=== PATIENT | female | born 1980 | race Caucasian/White ===

== ENCOUNTER 2018-08-02 18:20 | Observation (INO) | payer OTHER ==
[2018-08-02 20:52] LABS: ADD MAN DIFF? NO
[2018-08-02 20:55] LABS: BASOPHIL # 0.1 10^3/ul (0.0-0.1); BASOPHILS % 0.4 % (0.0-2.0); EOSINOPHILS # 0.5 10^3/ul (0.0-0.5); EOSINOPHILS % 3.9 % (0.0-7.0); HEMATOCRIT 32.2 % (37.0-47.0); HEMOGLOBIN 10.9 g/dl (12.0-16.0); LYMPHOCYTES # 2.4 10^3/ul (0.8-2.9); LYMPHOCYTES % 20.2 % (15.0-51.0); MEAN CORPUSCULAR HEMOGLOBIN 29.9 pg (29.0-33.0); MEAN CORPUSCULAR HGB CONC 33.9 g/dl (32.0-37.0); MEAN CORPUSCULAR VOLUME 88.2 fl (82.0-101.0); MEAN PLATELET VOLUME 8.9 fl (7.4-10.4); MONOCYTE # 0.9 10^3/ul (0.3-0.9); MONOCYTES % 7.8 % (0.0-11.0); NEUTROPHIL # 8.1 10^3/ul (1.6-7.5); NEUTROPHILS % 67.4 % (39.0-77.0); PLATELET COUNT 241 10^3/UL (140-415); RED BLOOD COUNT 3.65 10^6/ul (4.20-5.40); RED CELL DISTRIBUTION WIDTH 12.3 % (11.5-14.5)
[2018-08-02 21:15] LABS: INR 0.98; PARTIAL THROMBOPLASTIN TIME 28.8 Sec (23.0-35.0); PROTIME 13.1 Sec (11.9-14.9)
[2018-08-02] MEDS: HYDROmorphONE 0.5 MG/0.5 ML SYG IV (21:24)
[2018-08-02] MEDS: ONDANSETRON 4 MG INJ IV (21:24)
[2018-08-02] MEDS: SOD CHLORIDE 0.9% 1,000 ML IV ×2 (21:24→22:41)
[2018-08-02 21:26] LABS: ANION GAP 8 (5-13); BLOOD UREA NITROGEN 10 mg/dl (7-20); CALCIUM 9.4 mg/dl (8.4-10.2); CARBON DIOXIDE 24 mmol/L (21-31); CHLORIDE 105 mmol/L (97-110); CREATININE 0.58 mg/dl (0.44-1.00); Estimated GFR > 60 mL/min (>60); GLUCOSE 102 mg/dl (70-220); POTASSIUM 4.2 mmol/L (3.5-5.1); SODIUM 137 mmol/L (135-144)
[2018-08-02] MEDS ORDERED: ONDANSETRON 4 MG INJ IV (23:00)
[2018-08-03] MEDS: DEXTROSE 5%-LR 1,000 ML IV (00:43)
[2018-08-03] MEDS: ACETAMINOPHEN 325 MG TAB PO (00:55)
[2018-08-03] MEDS ORDERED: ACETAMINOPHEN 325 MG TAB PO (01:00)
[2018-08-03] MEDS: LACTATED RINGER'S 1,000 ML IV ×2 (01:58→11:38)
[2018-08-03 02:07] LABS: HEMATOCRIT 30.3 % (37.0-47.0); HEMOGLOBIN 10.4 g/dl (12.0-16.0)
[2018-08-03 02:25] LABS: ANION GAP 8 (5-13); BLOOD UREA NITROGEN 8 mg/dl (7-20); CALCIUM 8.5 mg/dl (8.4-10.2); CARBON DIOXIDE 27 mmol/L (21-31); CHLORIDE 103 mmol/L (97-110); CREATININE 0.56 mg/dl (0.44-1.00); Estimated GFR > 60 mL/min (>60); GLUCOSE 105 mg/dl (70-220); POTASSIUM 3.6 mmol/L (3.5-5.1); SODIUM 138 mmol/L (135-144)
[2018-08-03 05:15] LABS: ADD MAN DIFF? NO
[2018-08-03 05:16] LABS: WHITE BLOOD COUNT 10.4 10^3/ul (4.8-10.8)
[2018-08-03 05:16] LABS: BASOPHILS % 0.4 % (0.0-2.0); EOSINOPHILS # 0.5 10^3/ul (0.0-0.5); EOSINOPHILS % 4.4 % (0.0-7.0); HEMATOCRIT 27.5 % (37.0-47.0); HEMOGLOBIN 9.3 g/dl (12.0-16.0); LYMPHOCYTES # 2.4 10^3/ul (0.8-2.9); LYMPHOCYTES % 22.9 % (15.0-51.0); MEAN CORPUSCULAR HEMOGLOBIN 29.7 pg (29.0-33.0); MEAN CORPUSCULAR HGB CONC 33.8 g/dl (32.0-37.0); MEAN CORPUSCULAR VOLUME 87.9 fl (82.0-101.0); MEAN PLATELET VOLUME 9.2 fl (7.4-10.4); MONOCYTE # 0.9 10^3/ul (0.3-0.9); MONOCYTES % 8.5 % (0.0-11.0); NEUTROPHIL # 6.6 10^3/ul (1.6-7.5); NEUTROPHILS % 63.5 % (39.0-77.0); PLATELET COUNT 206 10^3/UL (140-415); RED BLOOD COUNT 3.13 10^6/ul (4.20-5.40); RED CELL DISTRIBUTION WIDTH 12.5 % (11.5-14.5)
[2018-08-03] MEDS ORDERED: METHYLERGONOVINE 0.2 MG INJ (07:00)
[2018-08-03 07:17] LABS: ADD UMIC YES; UR ASCORBIC ACID NEGATIVE (NEGATIVE); UR BILIRUBIN (Dip) NEGATIVE (NEGATIVE); UR BLOOD (Dip) 3+ mg/dL (NEGATIVE); UR CLARITY CLEAR (CLEAR); UR COLOR STRAW (YELLOW); UR GLUCOSE (Dip) NEGATIVE (NEGATIVE); UR KETONES (Dip) NEGATIVE (NEGATIVE); UR LEUKOCYTE ESTERASE (Dip) 3+ Leu/ul (NEGATIVE); UR NITRITE (Dip) NEGATIVE (NEGATIVE); UR RBC 3 /HPF (0-5); UR SPECIFIC GRAVITY (Dip) 1.008 (1.003-1.030); UR TOTAL PROTEIN (Dip) NEGATIVE (NEGATIVE); UR UROBILINOGEN (Dip) NEGATIVE (NEGATIVE); UR WBC 10 /HPF (0-5)
[2018-08-03] MEDS: morphine 2 MG INJ IV ×2 (07:58→12:27)
[2018-08-03] MEDS: DOXYCYCLINE 100 MG in SOD CHLORIDE 0.9% 250 ML IVPB (12:47)
[2018-08-03] MEDS ORDERED: LIDOCAINE 2% (SDV) 5 ML INJ (14:18)
[2018-08-03] MEDS ORDERED: PROPOFOL 20 ML (14:18)
[2018-08-03] MEDS ORDERED: SILVER NITRATE SWAB (14:31)
[2018-08-03] MEDS ORDERED: OXYTOCIN 10 UNIT INJ ×2 (14:33→14:37)
[2018-08-03] MEDS ORDERED: METOCLOPRAMIDE 10 MG INJ (14:38)
[2018-08-03] MEDS ORDERED: ONDANSETRON 4 MG INJ (14:38)
[2018-08-03] MEDS ORDERED: FENTAnyl 50 MCG/ML VIAL IV ×3 (15:00)
[2018-08-03] MEDS ORDERED: MIDAZOLAM 1 MG/ML 2 ML INJ IV (15:00)
[2018-08-03] MEDS ORDERED: ONDANSETRON 4 MG INJ IV ×2 (15:00→15:30)
[2018-08-03] MEDS ORDERED: OXYCODONE/ACETAMINOPHEN (5/325) TAB PO ×2 (15:00)
[2018-08-03] MEDS ORDERED: DIPHENHYDRAMINE 50 MG INJ IV (15:00)
[2018-08-03] MEDS ORDERED: HYDROmorphONE 1 MG/5 ML IV SYRINGE IV ×2 (15:00)
[2018-08-03] MEDS ORDERED: MEPERIDINE 25 MG INJ IV (15:00)
[2018-08-03] MEDS ORDERED: METOCLOPRAMIDE 10 MG INJ IV (15:00)
[2018-08-03] MEDS: HYDROmorphONE 1 MG/5 ML IV SYRINGE IV ×2 (15:11→18:43)
[2018-08-03] MEDS: IBUPROFEN 600 MG TAB PO (17:14)
[2018-08-03] MEDS: HYDROCODONE/APAP (5/325) TAB PO ×2 (19:53→23:51)
[2018-08-04 05:07] LABS: ADD MAN DIFF? NO
[2018-08-04 05:18] LABS: WHITE BLOOD COUNT 12.4 10^3/ul (4.8-10.8)
[2018-08-04 05:18] LABS: BASOPHILS % 0.2 % (0.0-2.0); EOSINOPHILS # 0.3 10^3/ul (0.0-0.5); EOSINOPHILS % 2.2 % (0.0-7.0); HEMATOCRIT 27.6 % (37.0-47.0); HEMOGLOBIN 9.5 g/dl (12.0-16.0); LYMPHOCYTES # 1.7 10^3/ul (0.8-2.9); LYMPHOCYTES % 13.9 % (15.0-51.0); MEAN CORPUSCULAR HEMOGLOBIN 30.5 pg (29.0-33.0); MEAN CORPUSCULAR HGB CONC 34.4 g/dl (32.0-37.0); MEAN CORPUSCULAR VOLUME 88.7 fl (82.0-101.0); MEAN PLATELET VOLUME 9.3 fl (7.4-10.4); MONOCYTE # 0.7 10^3/ul (0.3-0.9); MONOCYTES % 5.4 % (0.0-11.0); NEUTROPHIL # 9.7 10^3/ul (1.6-7.5); PLATELET COUNT 217 10^3/UL (140-415); RED BLOOD COUNT 3.11 10^6/ul (4.20-5.40); RED CELL DISTRIBUTION WIDTH 12.5 % (11.5-14.5)
[2018-08-04] MEDS: HYDROCODONE/APAP (5/325) TAB PO (05:26)
[2018-08-04] MEDS: ACETAMINOPHEN 325 MG TAB PO (11:00)
== END 2018-08-04 17:50 | disposition home or self-care (01) ==
LOC: MS1 22:42 → E/R 18:20
DX: O03.4 Incomplete spontaneous abortion without complication (principal); D25.9 Leiomyoma of uterus, unspecified
CPT/HCPCS: 36415; 76801; 76817; 80048; 81001; 84702; 85014; 85018; 85025; 85610; 85730; 86850; 86900; 86901; 88305; 96374; 96375; 99285-25